=== PATIENT | female | born 1970 | race Caucasian/White ===

== ENCOUNTER 2019-02-13 08:57 | Outpatient (CLI) | payer OTHER ==
[2019-02-13 10:30] LABS: MEAN CORPUSCULAR HEMOGLOBIN 30.8 pg (28.0-34.0)
[2019-02-13 10:31] LABS: BASOPHILS % 0.7 (0.0-1.5); EOSINOPHILS % 1.4 % (0.0-6.8); MONOCYTES % 4.2 % (0.0-11.0); NEUTROPHILS # 6.8 # k/uL (1.4-7.7)
[2019-02-13 10:48] LABS: eGFR (Non-African) > 60
== END 2019-02-13 09:00 ==
LOC: LAB 08:57
PROVIDERS: ATTEND Nurse Practitioner Family
DX: R00.2 Palpitations (principal); I10 Essential (primary) hypertension; E66.09 Other obesity due to excess calories; E03.9 Hypothyroidism, unspecified; R53.83 Other fatigue
CPT/HCPCS: 36415; 80053; 80061; 83036; 84439; 84443; 84481; 85025